=== PATIENT | male | born 1975 | race Caucasian/White ===

== ENCOUNTER 2016-10-03 11:53 | Inpatient (IN) | payer OTHER ==
[~2016-10-03] VITALS: Ht 182.9 cm; Wt 76.9 kg
[~2016-10-03 11:53] MED LIST: CIPRO500 MG PO; DAKIN'S SOLUTI500 ML IR; DOXYCYCLINE HY100 MG PO; LEVEMIR100 UNIT/1 SQ; PERCOCET 5-3251 EACH PO; ZYVOX600 MG PO
[2016-10-03 13:21] LABS: HEMOGLOBIN 14.4 gm/dl (14.0-17.5); RED BLOOD COUNT 5.09 M/UL (4.20-5.50); WHITE BLOOD COUNT 11.1 K/UL (4.5-11.0)
[2016-10-03 13:27] LABS: BUN/CREATININE RATIO 10 (0-10)
[2016-10-04 06:23] LABS: HEMOGLOBIN 13.2 gm/dl (14.0-17.5); RED BLOOD COUNT 4.67 M/UL (4.20-5.50); WHITE BLOOD COUNT 12.3 K/UL (4.5-11.0)
[2016-10-04 06:54] LABS: BUN/CREATININE RATIO 10 (0-10)
--- NOTE | 2016-10-04 12:51 | NUR ---
PATIENT HAS REFUSED IV ANTIBIOTICS AND MAGNESIUM REPLACEMENT. HE HAS TAKEN THE INSULIN, IV AND PO PAIN MEDICATIONS. DR. NEAL NOTIFIED AT 1250 ON October. PER ORDER OF DR. NEAL ALL PAIN MEDICATIONS HAVE BEEN DISCONTINUED.
== END 2016-10-04 15:23 | disposition left against medical advice (07) | DRG 638 ==
LOC: ER1 11:53 → ZEROF 16:00 → M/S 16:00
PROVIDERS: Emergency Medicine; ADMIT Emergency Medicine
DX: E11.621 Type 2 diabetes mellitus with foot ulcer (principal); M86.9 Osteomyelitis, unspecified; L97.529 Non-pressure chronic ulcer of other part of left foot with unspecified severity; E11.69 Type 2 diabetes mellitus with other specified complication; E11.628 Type 2 diabetes mellitus with other skin complications; L03.032 Cellulitis of left toe; Z79.4 Long term (current) use of insulin; F17.210 Nicotine dependence, cigarettes, uncomplicated; D72.829 Elevated white blood cell count, unspecified; Z88.0 Allergy status to penicillin
CPT/HCPCS: 36415; 73630; 80048; 82962; 83735; 85025; 86140; 87040; 87070; 87077; 87186; 87205; 93971; 96365; 96375; 99284; J1335; J2020; J2185; J2270; J2550; J7050

== ENCOUNTER 2022-01-22 18:47 | Emergency (ER) | payer OTHER ==
[~2022-01-22 18:47] MED LIST changes: +CLEOCIN HCL300 MG PO; +GLUCOPHAGE500 MG PO; +HUMALOG100 UNIT/1 SQ; +LANTUS100 UNIT/1 SQ; +LEVAQUIN750 MG PO; -LEVEMIR100 UNIT/1 SQ; +NORCO 10-325 T1 EACH PO; +ORAZINC PO; +PRINIVIL5 MG PO; +VITAMIN C 500500 MG PO; +VITAMIN C500 M1 PO; +clindamycin; +zosyn
[2022-01-22 19:27] LABS: RED BLOOD COUNT 3.25 M/UL (4.20-5.50); WHITE BLOOD COUNT 12.6 K/UL (4.5-11.0)
[2022-01-22 19:55] LABS: BUN/CREATININE RATIO 28 (0-10)
== END 2022-01-23 15:54 | disposition other institution (70) ==
LOC: ER1 18:47
PROVIDERS: Student in an Organized Health Care Education/Training Program
DX: E11.69 Type 2 diabetes mellitus with other specified complication (principal); E11.65 Type 2 diabetes mellitus with hyperglycemia; M86.9 Osteomyelitis, unspecified; F17.200 Nicotine dependence, unspecified, uncomplicated; Z89.429 Acquired absence of other toe(s), unspecified side; Z88.1 Allergy status to other antibiotic agents
CPT/HCPCS: 36556; 71045; 73630; 80053; 81001; 82009; 82803; 82962; 83605; 85025; 85652; 86140; 87040; 93926; 96365; 96367; 96375; 96376; 99285; J2020; J2543